=== PATIENT | female | born 1955 | race Caucasian/White ===

== ENCOUNTER 2017-07-17 12:08 | Emergency (ER) | payer BC ==
[~2017-07-17] VITALS: Ht 162.6 cm; Wt 56.8 kg
[~2017-07-17 12:08] MED LIST: CARAFATE1 GM PO; CO-ENZYME Q-1010 MG; Ecotrin PO; FISH OIL300 MG PO; KLOR-CON SPRIN10 MEQ PO; MULTI FOR HER1 EACH PO; Mylicon,Mylanta Gas, PO; NOHOMEMEDS; Pepcid PO; VIACTIV TABLET1 EAC2 PO; VITAMIN E100 UNIT PO
[2017-07-17] MEDS ORDERED: ULTRAM50 MG PO (14:55)
[2017-07-17 15:29] VITALS: BP 140/93
== END 2017-07-17 15:28 | disposition home or self-care (01) ==
LOC: EME 12:08
DX: S02.2XXA Fracture of nasal bones, initial encounter for closed fracture (principal); W54.1XXA Struck by dog, initial encounter; Z88.5 Allergy status to narcotic agent; Z88.2 Allergy status to sulfonamides; Z88.0 Allergy status to penicillin; Z88.8 Allergy status to other drugs, medicaments and biological substances
CPT/HCPCS: 70160; 99281; 99284